=== PATIENT | female | born 1955 | race Caucasian/White ===

== ENCOUNTER 2018-02-21 13:00 | Outpatient (CLI) | payer BC ==
--- NOTE | 2018-02-21 15:19 | RAD ---
THREE VIEWS LUMBAR SPINE: HISTORY: Low back pain. FINDINGS: AP, lateral, and coned-down views lumbar spine obtained. Images demonstrate 5 [id number] lumbar vertebrae. Hypoplastic T12 ribs seen. No evidence of acute lumbar spine fracture is seen. No evidence of antonio- or retrolisthesis seen. No significant disk space height loss is seen. IMPRESSION: No significant evidence of lumbar spine pathology is seen. POS: [facility]
--- NOTE | 2018-02-21 15:28 | ULT ---
RIGHT LOWER EXTREMITY VENOUS DUPLEX EXAM: History: Right leg pain and swelling. FINDINGS: Real-time color doppler evaluation of the right lower extremity was performed from groin to calf. Thi s includes evaluation of the common femoral, superficial, and profunda femoral, saphenous, popliteal and posterior tibial veins. This shows a patent deep venous system. There is normal compressibility a nd augmentation. There is no evidence of DVT. IMPRESSION: No evidence of DVT of the right lower extremity. POS: [facility]
== END 2018-02-21 13:01 | disposition home or self-care (01) ==
LOC: ULT 13:00
PROVIDERS: ATTEND Internal Medicine Geriatric Medicine
DX: M54.5 Low back pain (principal); M79.89 Other specified soft tissue disorders; E55.9 Vitamin D deficiency, unspecified; M25.50 Pain in unspecified joint; R53.82 Chronic fatigue, unspecified; M89.8X9 Other specified disorders of bone, unspecified site
CPT/HCPCS: 72100; 80053; 82306; 83520; 84443; 85025; 86038; 86200; 86225